=== PATIENT | male | born 1985 | race Caucasian/White ===

== ENCOUNTER 2017-02-21 13:01 | Emergency (ER) | payer BC ==
--- NOTE | 2017-02-22 10:00 | ER ---
ADMIT: 02/21/2017 RM/LOC: ER [facility] MR#: [id number] [facility] [address] [place] [id number] JOSELUIS CORBIN [address] [place] [address] Emergency Room Report SEX: M AGE: 31 : 1985 DATE: 02/21/2017 CHIEF COMPLAINT: Chest pain. HISTORY OF PRESENT ILLNESS: This is a 31-year-old white male, who presents to the ER for evaluation of chest pain, he has had off and on for the past 30 days. States he has been diagnosed with ADHD in the past. He was doing well on Adderall, subsequently tried a trial of Vyvanse. He states after started to taking this, he started to feel like his heart was racing. He began having this vague anterior chest pain. He stopped taking this medication, he has not been taking anything since this time. He states this primarily gets worse at night when he is able to think about it. He feels like his heart is racing. He gets this pain. He thought this could be heartburn. He tried some Tums, it did not improve. Describes the pain as sharp, just between the nipples. It does not radiate. It is not associated with nausea, vomiting, sweating, shortness of breath, or cough. States he has palpitations. This is not worsened by exertion or deep breaths. He has never had problems with his heart before. No history of any arrhythmias or cardiac disease. No diabetes, hypertension, or hyperlipidemia. Denies smoking. No family history of coronary artery disease. No past medical history for DVT or PEs. Denies any recent illnesses, fevers, back pain, numbness in the extremities, ankle swelling, or known drug allergies. COURSE IN THE EMERGENCY ROOM: The patient was seen and examined. GENERAL: Afebrile, nontoxic, in no acute distress. He is somewhat anxious, but very cooperative and polite. HEENT: Normocephalic, atraumatic. Eyes are equal and reactive. Pharynx is nonerythematous. NECK: Soft, supple. There is no lymphadenopathy. CHEST: Clear. No wheezes, rhonchi, or rales. No decreased air movement. No distress. There is no tenderness to palpation of his chest. HEART: Regular. No murmurs, gallops, or rubs. Pulses are equal in the upper extremities. ABDOMEN: Soft and nontender. SKIN: Warm and dry. EXTREMITIES: Nontender. There is no pedal edema. NEUROLOGICAL: He is alert and oriented, cooperative with exam. We did obtain an EKG today, it shows sinus bradycardia rate of 58. There is no ST elevation. He has T-wave inversion in V1. He has a normal R-wave progression, upright Ts in all the other precordial leads. There is no reciprocal ST-T depression. I had a long discussion with the patient at bedside, reassuring him that there was no apparent cardiac involvement from this. Certainly could be related to some of his ADHD, maybe some underlying anxiety as this seems to be worse when he is able to focus on this. It does not certainly sound like cardiac chest pains, sharp, nonradicular, not associated with nausea, vomiting, diaphoresis, or shortness of breath. He was recommended to start taking his Adderall again ADMIT: 02/21/2017 RM/LOC: [facility] MR#: [id number] [place] [id number] JOSELUIS CORBIN [address] [facility] [address] [place] [address] Emergency Room Report SEX: M AGE: 31 : 1985 see if this will make it improve. Otherwise, certainly phone his primary care provider as needed. CLINICAL IMPRESSION: 1. Atypical chest pain. 2. History of attention deficit hyperactivity disorder, currently not on medication. DISPOSITION: Discharged home. Activity as tolerated. Continue home medications. Recommended starting the Adderall again. He is to return with worsening signs or symptoms. Follow up with his primary care as needed. Discharged home in stable condition. ZAIN Mullins / Jf Rapp MD / modl JOB #: [id number] CC: Jf Rapp MD, Attending Physician Danny Perry MD, Family Physician
== END 2017-02-21 13:48 | disposition home or self-care (01) ==
LOC: ER 13:01
DX: R07.89 Other chest pain (principal); F90.9 Attention-deficit hyperactivity disorder, unspecified type; Z79.899 Other long term (current) drug therapy